=== PATIENT | female | born 1960 | race African-American/Black ===

== ENCOUNTER 2016-04-08 10:02 | Emergency (ER) | payer MEDICARE, OTHER ==
[~2016-04-08] VITALS: Ht 162.6 cm; Wt 91.8 kg
[~2016-04-08 10:02] MED LIST: ATOR10TA84 PO; BACL10TA PO; GABA-318 PO; GLAT20I SQ; LIDO15CR11 TP; NAPR-58 PO; OXYC-165 PO; OXYC20 PO; PANT40TA25 PO; RISP1 PO; SUMA25TA9 PO
[2016-04-08 10:07] VITALS: BP 133/87
[2016-05-26] MEDS ORDERED: CALC-51 PO (09:32)
[2016-05-26] MEDS ORDERED: ALBU8.5H IH (09:32)
[2016-05-26] MEDS ORDERED: OXYB5XL PO (09:32)
[2016-05-26] MEDS ORDERED: MELO-273 PO (09:32)
[2016-05-26] MEDS ORDERED: CARV3 PO (09:32)
[2016-05-26] MEDS ORDERED: CETI-260 PO (09:32)
[2016-05-26] MEDS ORDERED: TIMO.5OS OU (09:32)
== END 2016-04-08 11:24 | disposition home or self-care (01) ==
LOC: EMS 10:04
DX: T81.31XD Disruption of external operation (surgical) wound, not elsewhere classified, subsequent encounter (principal); F32.9 Major depressive disorder, single episode, unspecified; I10 Essential (primary) hypertension; E78.00 Pure hypercholesterolemia, unspecified; Z88.0 Allergy status to penicillin; Z88.5 Allergy status to narcotic agent; Z88.8 Allergy status to other drugs, medicaments and biological substances; Z91.040 Latex allergy status
CPT/HCPCS: 99282

== ENCOUNTER → 2016-05-26 | Outpatient (CLI) | payer MEDICARE, OTHER ==
[~2016-05-26] VITALS: Ht 162.6 cm; Wt 96.1 kg
[~2016-05-26] MED LIST changes: +ALBU8.5H IH; +CALC-51 PO; +CARV3 PO; +CETI-260 PO; +MELO-273 PO; +OXYB5XL PO; +TIMO.5OS OU
[2016-05-26 09:24] VITALS: BP 143/77
== END | disposition home or self-care (01) ==
LOC: HBOWC 08:41
PROVIDERS: ATTEND Emergency Medicine
DX: T81.89XD Other complications of procedures, not elsewhere classified, subsequent encounter (principal); L98.491 Non-pressure chronic ulcer of skin of other sites limited to breakdown of skin; M79.2 Neuralgia and neuritis, unspecified; G89.29 Other chronic pain; M54.89 Other dorsalgia; G35 Multiple sclerosis; I10 Essential (primary) hypertension; E66.9 Obesity, unspecified; F25.8 Other schizoaffective disorders; E78.5 Hyperlipidemia, unspecified; E78.00 Pure hypercholesterolemia, unspecified; F32.9 Major depressive disorder, single episode, unspecified; Y83.8 Other surgical procedures as the cause of abnormal reaction of the patient, or of later complication, without mention of misadventure at the time of the procedure
CPT/HCPCS: 97597

== ENCOUNTER → 2016-06-02 | Outpatient (CLI) | payer MEDICARE, OTHER ==
[~2016-06-02] MED LIST changes: -NAPR-58 PO
[2016-06-02 09:53] VITALS: BP 153/77
== END | disposition home or self-care (01) ==
LOC: HBOWC 08:44
PROVIDERS: ATTEND Emergency Medicine
DX: L98.491 Non-pressure chronic ulcer of skin of other sites limited to breakdown of skin (principal); I10 Essential (primary) hypertension; E78.5 Hyperlipidemia, unspecified; F32.9 Major depressive disorder, single episode, unspecified; G35 Multiple sclerosis; E66.9 Obesity, unspecified; E78.00 Pure hypercholesterolemia, unspecified
CPT/HCPCS: 97597

== ENCOUNTER → 2016-06-10 | Outpatient (CLI) | payer MEDICARE, OTHER, MEDICAID ==
[~2016-06-10] VITALS: Ht 162.6 cm; Wt 90.5 kg
[2016-06-10 12:17] VITALS: BP 119/72
== END | disposition home or self-care (01) ==
LOC: SRCNTR 11:58
PROVIDERS: ATTEND Internal Medicine Critical Care Medicine
DX: J45.32 Mild persistent asthma with status asthmaticus (principal); G47.33 Obstructive sleep apnea (adult) (pediatric); G35 Multiple sclerosis; E78.5 Hyperlipidemia, unspecified
CPT/HCPCS: G0463

== ENCOUNTER → 2016-06-17 | Outpatient (CLI) | payer MEDICARE, OTHER ==
[2016-06-17 09:35] VITALS: BP 126/72
== END | disposition home or self-care (01) ==
LOC: HBOWC 08:38
PROVIDERS: ATTEND Emergency Medicine
DX: L98.491 Non-pressure chronic ulcer of skin of other sites limited to breakdown of skin (principal); E78.5 Hyperlipidemia, unspecified; J45.32 Mild persistent asthma with status asthmaticus; G35 Multiple sclerosis; F32.9 Major depressive disorder, single episode, unspecified; E66.9 Obesity, unspecified; E78.00 Pure hypercholesterolemia, unspecified
CPT/HCPCS: 97597

== ENCOUNTER → 2016-06-30 | Outpatient (CLI) | payer MEDICARE, OTHER ==
[2016-06-30 08:10] VITALS: BP 128/90
== END | disposition home or self-care (01) ==
LOC: HBOWC 07:21
PROVIDERS: ATTEND Emergency Medicine
DX: L98.491 Non-pressure chronic ulcer of skin of other sites limited to breakdown of skin (principal); E78.5 Hyperlipidemia, unspecified; F32.9 Major depressive disorder, single episode, unspecified; G35 Multiple sclerosis; E66.9 Obesity, unspecified; E78.00 Pure hypercholesterolemia, unspecified; I10 Essential (primary) hypertension; J45.32 Mild persistent asthma with status asthmaticus

== ENCOUNTER → 2016-07-14 | Outpatient (CLI) | payer MEDICARE, OTHER ==
[2016-07-14 08:15] VITALS: BP 145/85
== END | disposition home or self-care (01) ==
LOC: HBOWC 07:35
PROVIDERS: ATTEND Emergency Medicine
DX: L98.491 Non-pressure chronic ulcer of skin of other sites limited to breakdown of skin (principal); G35 Multiple sclerosis; I10 Essential (primary) hypertension; E78.5 Hyperlipidemia, unspecified; F32.9 Major depressive disorder, single episode, unspecified; J45.32 Mild persistent asthma with status asthmaticus; E66.9 Obesity, unspecified; E78.00 Pure hypercholesterolemia, unspecified

== ENCOUNTER → 2016-09-16 | Outpatient (CLI) | payer MEDICARE, OTHER ==
[~2016-09-16] VITALS: Ht 162.6 cm; Wt 92.0 kg
[~2016-09-16] MED LIST changes: +ARMO150T5 PO; +ATOR20TA86 PO; +BENA1TAB4 PO; +BENA20 PO; +CALC500T62 PO; +CLON1TAB4 PO; +DOCU250C91 PO; +HYDR25TA PO; +LEVAHFA IH; +NAPR-58 PO; +OXYC-158 PO; +OXYC10TA72 PO; +ZOLP10 PO
[2016-09-16 13:50] VITALS: BP 129/87
== END | disposition home or self-care (01) ==
LOC: SRCNTR 13:44
PROVIDERS: ATTEND Internal Medicine Critical Care Medicine
DX: J45.32 Mild persistent asthma with status asthmaticus (principal); G47.33 Obstructive sleep apnea (adult) (pediatric); G35 Multiple sclerosis; E78.5 Hyperlipidemia, unspecified
CPT/HCPCS: G0463

== ENCOUNTER → 2017-05-02 | Outpatient (CLI) | payer MEDICARE, OTHER ==
[~2017-05-02] VITALS: Ht 162.6 cm; Wt 90.0 kg
[~2017-05-02] MED LIST changes: -ALBU8.5H IH; +ALBU8.5H8 IH; -ARMO150T5 PO; -ATOR20TA86 PO; -BENA1TAB4 PO; -BENA20 PO; +CALC-1038 PO; -CALC-51 PO; -CALC500T62 PO; -CETI-260 PO; +CETI-290 PO; -CLON1TAB4 PO; -DOCU250C91 PO; -HYDR25TA PO; -LEVAHFA IH; +MELO-107 PO; -MELO-273 PO; -NAPR-58 PO; -OXYC-158 PO; -OXYC10TA72 PO; -OXYC20 PO; -ZOLP10 PO
[2017-05-02 11:52] VITALS: BP 134/85
== END | disposition home or self-care (01) ==
LOC: SRCNTR 11:17
PROVIDERS: ATTEND Internal Medicine Critical Care Medicine
DX: G47.33 Obstructive sleep apnea (adult) (pediatric) (principal); J45.32 Mild persistent asthma with status asthmaticus; G35 Multiple sclerosis; E66.9 Obesity, unspecified; E78.5 Hyperlipidemia, unspecified; B37.0 Candidal stomatitis; Z88.0 Allergy status to penicillin; Z88.5 Allergy status to narcotic agent; Z88.8 Allergy status to other drugs, medicaments and biological substances; Z98.890 Other specified postprocedural states
CPT/HCPCS: G0463

== ENCOUNTER → 2017-09-22 | Outpatient (CLI) | payer MEDICARE, OTHER ==
[~2017-09-22] VITALS: Ht 162.6 cm; Wt 88.5 kg
[~2017-09-22] MED LIST changes: +ASPI-556 PO; +METO-558 PO
[2017-09-22 12:53] VITALS: BP 149/91
== END | disposition home or self-care (01) ==
LOC: SRCNTR 12:45
PROVIDERS: ATTEND Internal Medicine Critical Care Medicine
DX: J45.32 Mild persistent asthma with status asthmaticus (principal); G35 Multiple sclerosis; E66.09 Other obesity due to excess calories; G47.33 Obstructive sleep apnea (adult) (pediatric); E78.5 Hyperlipidemia, unspecified
CPT/HCPCS: G0463

== ENCOUNTER → 2017-12-27 | Outpatient (CLI) | payer MEDICARE, OTHER ==
[~2017-12-27] VITALS: Ht 162.6 cm; Wt 87.0 kg
[2017-12-27 13:48] VITALS: BP 156/87
== END | disposition home or self-care (01) ==
LOC: SRCNTR 13:02
PROVIDERS: ATTEND Internal Medicine Critical Care Medicine
DX: G47.33 Obstructive sleep apnea (adult) (pediatric) (principal); J45.32 Mild persistent asthma with status asthmaticus; G35 Multiple sclerosis; E66.9 Obesity, unspecified
CPT/HCPCS: G0463

== ENCOUNTER → 2018-05-05 | Outpatient (CLI) | payer MEDICARE, OTHER ==
[~2018-05-05] MED LIST changes: +CETI-170 PO; -CETI-290 PO; -GABA-318 PO; +GABA600T10 PO
== END | disposition home or self-care (01) ==
LOC: RADPV 10:12
PROVIDERS: ATTEND Internal Medicine Critical Care Medicine
DX: J44.9 Chronic obstructive pulmonary disease, unspecified (principal)

== ENCOUNTER → 2018-05-29 | Outpatient (CLI) | payer MEDICARE, OTHER ==
[~2018-05-29] MED LIST changes: -CETI-170 PO; +CETI10TA59 PO
== END | disposition home or self-care (01) ==
LOC: RADPV 14:05
PROVIDERS: ATTEND Internal Medicine Geriatric Medicine
DX: M79.601 Pain in right arm (principal); W19.XXXA Unspecified fall, initial encounter; Y93.9 Activity, unspecified; Y92.89 Other specified places as the place of occurrence of the external cause; Y99.8 Other external cause status

== ENCOUNTER → 2019-01-23 | Outpatient (CLI) | payer MEDICARE, OTHER ==
[~2019-01-23] VITALS: Ht 162.6 cm; Wt 84.0 kg
[2019-01-23 10:31] VITALS: BP 113/82
== END | disposition home or self-care (01) ==
LOC: SRCNTR 10:30
PROVIDERS: ATTEND Internal Medicine Critical Care Medicine
DX: G47.33 Obstructive sleep apnea (adult) (pediatric) (principal); J45.32 Mild persistent asthma with status asthmaticus; G35 Multiple sclerosis; E66.9 Obesity, unspecified; J45.909 Unspecified asthma, uncomplicated; Z96.652 Presence of left artificial knee joint; Z90.710 Acquired absence of both cervix and uterus; Z98.890 Other specified postprocedural states; Z79.82 Long term (current) use of aspirin; Z79.899 Other long term (current) drug therapy
CPT/HCPCS: G0463

== ENCOUNTER → 2019-05-24 | Outpatient (CLI) | payer MEDICARE, OTHER ==
[~2019-05-24] VITALS: Ht 162.6 cm; Wt 88.0 kg
[~2019-05-24] MED LIST changes: -ALBU8.5H8 IH
[2019-05-24 10:32] VITALS: BP 124/72
== END | disposition home or self-care (01) ==
LOC: SRCNTR 10:31
PROVIDERS: ATTEND Internal Medicine Critical Care Medicine
DX: G47.33 Obstructive sleep apnea (adult) (pediatric) (principal); J45.32 Mild persistent asthma with status asthmaticus; G35 Multiple sclerosis; E66.9 Obesity, unspecified
CPT/HCPCS: G0463